=== PATIENT | male | born 1960 | race Caucasian/White ===

== ENCOUNTER → 2020-04-03 | Outpatient (CLI) | payer OTHER ==
--- NOTE | 2020-04-03 18:13 | XR ---
EXAMINATION TYPE: XR lumbar spine 2 or 3V DATE OF EXAM: 04/03/2020 COMPARISON: NONE HISTORY: Back pain TECHNIQUE: 4 views FINDINGS: Vertebra have normal alignment. There is mild spurring of the endplates from L3 to S1. Ther e is vacuum disc at L5-S1. The posterior elements are intact. There is no compression fracture. Sacro iliac joints are intact. IMPRESSION: Mild spondylotic changes in the lower lumbar spine. No fracture seen.
== END | disposition home or self-care (01) ==
LOC: RAD 15:28
PROVIDERS: ATTEND Emergency Medicine
DX: M47.816 Spondylosis without myelopathy or radiculopathy, lumbar region (principal)
CPT/HCPCS: 72100

== ENCOUNTER → 2020-05-25 | Outpatient (CLI) | payer OTHER ==
--- NOTE | 2020-05-25 08:41 | MR ---
EXAMINATION TYPE: MR lumbar spine wo con DATE OF EXAM: 05/25/2020 COMPARISON: Lumbar spine x-ray April 03, 2020 HISTORY: Strain of muscle or back injury 7 weeks earlier with back pain into right buttocks per patie nt. TECHNIQUE: Multiplanar, multisequence imaging of the lumbar spine is performed without IV contrast. FINDINGS: Sagittal images of the lumbar spine show vertebral body height to remain satisfactory. Alig nment is overall straightened with slight grade 1 retrolisthesis L3 on L4, L4 on L5, and L5 on S1. Mu ltilevel disc desiccation with moderate disc space narrowing L5-S1 level. The conus medullaris is no rmal in position and signal ending at T12-L1 disc space level. The bone marrow signal intensity is w ithin normal limits. Mild to moderate multilevel anterior and lateral spurring is present. Axial images show T12-L1 and L1-L2 levels to appear within normal limits. Axial images at L2-L3 level show mild broad disc bulge with left lateral disc protrusion component. S liz canal is preserved. Bilateral neural foramina are patent. Axial images at the L3-L4 level moderate broad disc bulge with central disc protrusion component effa cing anterior thecal sac and causing moderate bilateral anterior inferior neural foraminal narrowing. There appears to be some mass effect on the extraforaminal portion of the bilateral L3 nerve axial i mage 12 along with sagittal image 2 on the left and to a greater degree sagittal image 12 on the righ t. Axial images at the L4-L5 levels with mild facet degenerative changes bilaterally. There is broad-bas ed left paracentral disc protrusion axial image 8 effacing anterolateral thecal sac. There is asymmet cheryl [id number] left-sided neural foraminal narrowing. Patent bilateral neural foramina. Axial images at the L5-S1 levels mild/moderate facet degenerative changes bilaterally. There is focal right paracentral disc protrusion mildly effacing anterior thecal sac and there is moderate right al xin with mild to moderate left-sided inferior neural foraminal narrowing. Central T2 hyperintense round lesions in the left kidney are felt to reflect parapelvic cysts. There is some fairly moderate posterior paraspinal muscular atrophy bilaterally left slightly more prominen t than right greatest in the mid lumbar spine. IMPRESSION: Multilevel spondylolisthesis and degenerative changes mid to lower lumbar spine as detail ed above.
== END | disposition home or self-care (01) ==
LOC: RADMRIMAIN 07:24
PROVIDERS: ATTEND Emergency Medicine
DX: M99.73 Connective tissue and disc stenosis of intervertebral foramina of lumbar region (principal); M51.26 Other intervertebral disc displacement, lumbar region; M43.16 Spondylolisthesis, lumbar region; M47.816 Spondylosis without myelopathy or radiculopathy, lumbar region; M51.27 Other intervertebral disc displacement, lumbosacral region; S39.012D Strain of muscle, fascia and tendon of lower back, subsequent encounter
CPT/HCPCS: 72148